=== PATIENT | female | born 1970 | race Two or more races ===

== ENCOUNTER 2020-02-23 17:45 | Inpatient (IN) | payer OTHER ==
[~2020-02-23] VITALS: Ht 154.9 cm; Wt 68.0 kg
[2020-02-23] MEDS ORDERED: LORA10TA7 PO (18:21)
[2020-02-23] MEDS ORDERED: TRAZ-252 PO (18:26)
[2020-02-23] MEDS ORDERED: LEVE500T53 PO (18:26)
[2020-02-23] MEDS ORDERED: SERT50TA12 PO (18:26)
[2020-02-23] MEDS ORDERED: PHEN12S PR (18:26)
[2020-02-23] MEDS ORDERED: ALBU8HFA IH (18:26)
[2020-02-23] MEDS ORDERED: PROM6.2521 PO ×2 (18:26→18:29)
[2020-02-23] MEDS ORDERED: IBUP-2070 PO (18:26)
[2020-02-23] MEDS ORDERED: ONDANSETRON HCL 4 MG/2 ML VIAL IVP ONE (18:30)
[2020-02-23] MEDS ORDERED: LORazepam 2 MG/ML VIAL IVP ONE (18:30)
[2020-02-23] MEDS ORDERED: AZITHROMYCIN 500 MG/NS 250 ML IV ONE (18:30)
[2020-02-23] MEDS ORDERED: LevETIRAcetam 1,000 MG in DEXTROSE 5%-WATER 100 ML IV ONE (18:30)
[2020-02-23] MEDS ORDERED: SODIUM CHLORIDE 0.9% 1,000 ML IV ONE (18:30)
[2020-02-23] MEDS ORDERED: ONDANSETRON HCL 4 MG/2 ML VIAL IVP PRN ×2 (19:15→20:30)
[2020-02-23] MEDS ORDERED: ACETAMINOPHEN 325 MG TABLET PO PRN (19:15)
[2020-02-23] MEDS ORDERED: ACETAMINOPHEN 500 MG TABLET PO ONE (19:15)
[2020-02-23] MEDS ORDERED: 0.9% SODIUM CHLORIDE 10 ML SYRINGE IVP PRN (19:15)
[2020-02-23 19:23] LABS: INFLUENZA TYPE A NEGATIVE FOR TYPE A (NEGATIVE); INFLUENZA TYPE B NEGATIVE FOR TYPE B (NEGATIVE)
[2020-02-23 19:27] LABS: BASOPHILS % (AUTO) 0.7 % (0.0-2.0); EOSINOPHILS % (AUTO) 0.4 % (1.0-6.0); HEMATOCRIT 45.6 % (36-46); HEMOGLOBIN 15.4 g/dL (12.0-16.0); LYMPHOCYTES % (AUTO) 30.2 % (22.0-44.0); MEAN CORPUSCULAR HEMOGLOBIN 28.6 pg (26.0-34.0); MEAN CORPUSCULAR HGB CONC 33.8 G/dL (31.0-37.0); MEAN CORPUSCULAR VOLUME 84 fL (80-100); MONOCYTES # (AUTO) 0.6 K/uL (0.1-1.0); MONOCYTES % (AUTO) 6.5 % (2.0-9.0); NEUTROPHILS # (AUTO) 6.2 K/uL (1.8-7.7); NEUTROPHILS % (AUTO) 62.2 % (40.0-70.0); PLATELET COUNT (AUTO) 322 K/uL (150-450); RED CELL DISTRIBUTION WIDTH 15.1 % (11.5-14.5)
[2020-02-23 19:40] LABS: ANION GAP 7 mmol/L (8-16); CALCIUM, TOTAL 10.1 mg/dL (8.8-10.5); CARBON DIOXIDE 28 mmol/L (22-29); CHLORIDE 104 mmol/L (98-107); CREATININE 0.87 mg/dL (0.60-1.30); GLOMERULAR FILTR. RATE CALC > 60 mL/min (>60); GLUCOSE,RANDOM 109 mg/dL (70-110); SODIUM SERUM 139 mmol/L (136-145); UREA NITROGEN, BLOOD 20 mg/dL (7-18)
[2020-02-23] MEDS ORDERED: LevETIRAcetam 500 MG in DEXTROSE 5%-WATER 100 ML IV ONE (20:00)
[2020-02-23 20:06] LABS: ALANINE AMINOTRANSFERASE 51 U/L (12-78); ALBUMIN 4.4 g/dL (3.4-5.0); ALKALINE PHOSPHATASE 108 U/L (46-116); ASPARTATE AMINOTRANSFERASE 29 U/L (15-37); BILIRUBIN,TOTAL 0.5 mg/dL (0.1-1.0); C-REACTIVE PROTEIN QUANT < 0.05 mg/dL (0.00-0.30); CREATINE KINASE, TOTAL ONLY 226 U/L (26-192); FERRITIN 63 ng/mL (8-252); FREE T4 (FREE THYROXINE) 1.26 ng/dL (0.76-1.46); LACTATE DEHYDROGENASE 160 U/L (81-234); LIPASE 171 U/L (73-393); TOTAL PROTEIN, SERUM 9.2 g/dL (6.4-8.2)
[2020-02-23 20:08] LABS: B-TYPE NATRIURETIC PEPTIDE 16 pg/mL (0-100)
[2020-02-23 20:22] LABS: LACTIC ACID 0.6 mmol/L (0.4-2.0)
[2020-02-23 21:30] VITALS: BP 133/104
[2020-02-23] MEDS: DOCUSATE SODIUM 100 MG CAPSULE PO SCH ×2 (21:50→22:00)
[2020-02-24 00:45] VITALS: BP 147/97
[2020-02-24] MEDS: ACETAMINOPHEN 325 MG TABLET PO PRN ×2 (02:28→20:37)
[2020-02-24 05:00] VITALS: BP 151/89
[2020-02-24 07:55] VITALS: BP 152/72
[2020-02-24 08:49] LABS: BASOPHILS % (AUTO) 0.8 % (0.0-2.0); EOSINOPHILS % (AUTO) 1.9 % (1.0-6.0); HEMOGLOBIN 14.7 g/dL (12.0-16.0); LYMPHOCYTES # (AUTO) 3.6 K/uL (1.0-4.8); LYMPHOCYTES % (AUTO) 40.8 % (22.0-44.0); MEAN CORPUSCULAR HEMOGLOBIN 28.6 pg (26.0-34.0); MEAN CORPUSCULAR HGB CONC 33.5 G/dL (31.0-37.0); MEAN CORPUSCULAR VOLUME 86 fL (80-100); MONOCYTES # (AUTO) 0.6 K/uL (0.1-1.0); MONOCYTES % (AUTO) 6.6 % (2.0-9.0); NEUTROPHILS # (AUTO) 4.4 K/uL (1.8-7.7); NEUTROPHILS % (AUTO) 49.9 % (40.0-70.0); PLATELET COUNT (AUTO) 275 K/uL (150-450); RED BLOOD CELL COUNT(AUTO) 5.14 MIL/uL (4.00-5.20)
[2020-02-24 09:52] LABS: ALANINE AMINOTRANSFERASE 49 U/L (12-78); ALBUMIN 3.8 g/dL (3.4-5.0); ALKALINE PHOSPHATASE 86 U/L (46-116); ANION GAP 9 mmol/L (8-16); ASPARTATE AMINOTRANSFERASE 36 U/L (15-37); BILIRUBIN,TOTAL 0.6 mg/dL (0.1-1.0); CALCIUM, TOTAL 9.5 mg/dL (8.8-10.5); CARBON DIOXIDE 24 mmol/L (22-29); CHLORIDE 106 mmol/L (98-107); CREATININE 0.76 mg/dL (0.60-1.30); FERRITIN 61 ng/mL (8-252); GLOMERULAR FILTR. RATE CALC > 60 mL/min (>60); GLUCOSE,RANDOM 96 mg/dL (70-110); POTASSIUM 4.1 mmol/L (3.5-5.1); SODIUM SERUM 139 mmol/L (136-145); TOTAL PROTEIN, SERUM 8.1 g/dL (6.4-8.2); UREA NITROGEN, BLOOD 13 mg/dL (7-18)
[2020-02-24 09:54] LABS: C-REACTIVE PROTEIN QUANT < 0.05 mg/dL (0.00-0.30)
[2020-02-24] MEDS ORDERED: LORazepam 2 MG/ML VIAL IVP PRN (10:30)
[2020-02-24] MEDS ORDERED: DOCUSATE SODIUM 100 MG CAPSULE PO PRN (10:30)
[2020-02-24] MEDS ORDERED: BISACODYL 10 MG RECTAL RECTAL SUPPOSITORY PR PRN (10:45)
[2020-02-24] MEDS ORDERED: LevETIRAcetam 500 MG in DEXTROSE 5%-WATER 100 ML IV SCH (11:00)
[2020-02-24] MEDS: PANTOPRAZOLE SODIUM 40 MG DR TABLET PO SCH (11:38)
[2020-02-24 12:00] VITALS: BP 121/87
[2020-02-24 16:15] VITALS: BP 141/108
[2020-02-24] MEDS: LORazepam 2 MG/ML VIAL IM PRN ×2 (16:32→23:10)
[2020-02-24] MEDS ORDERED: LORazepam 2 MG/ML VIAL IM ONE (16:45)
[2020-02-24 20:45] VITALS: BP 129/76
[2020-02-24] MEDS: LevETIRAcetam 500 MG TABLET PO SCH (23:10)
[2020-02-25 00:45] VITALS: BP 124/78
[2020-02-25 05:03] VITALS: BP 146/102
[2020-02-25 07:28] VITALS: BP 145/83
[2020-02-25] MEDS: LevETIRAcetam 500 MG TABLET PO SCH (08:27)
[2020-02-25] MEDS: PANTOPRAZOLE SODIUM 40 MG DR TABLET PO SCH (08:28)
[2020-02-25] MEDS ORDERED: MULTIVITAMINS WITH MINERALS, THERAPEUTIC TABLET PO SCH (09:00)
[2020-02-25] MEDS: LORazepam 2 MG/ML VIAL IM PRN (10:18)
[2020-02-25 10:38] VITALS: BP 136/91
[2020-02-25] MEDS ORDERED: SERTRALINE HCL 50 MG TABLET PO SCH (11:15)
[2020-02-25] MEDS ORDERED: SERT100T12 PO (13:08)
[2020-02-25] MEDS ORDERED: TRAZ-257 PO (13:10)
[2020-02-25] MEDS ORDERED: TraZODone HCL 100 MG TABLET PO SCH (21:00)
== END 2020-02-25 17:45 | DRG 101 ==
LOC: EMS 17:47 → 5N 20:30
PROVIDERS: ADMIT Internal Medicine; ATTEND Internal Medicine
DX: G40.909 Epilepsy, unspecified, not intractable, without status epilepticus (principal); M62.82 Rhabdomyolysis; E86.0 Dehydration; R79.89 Other specified abnormal findings of blood chemistry; Z20.828 Contact with and (suspected) exposure to other viral communicable diseases; F41.1 Generalized anxiety disorder; J45.909 Unspecified asthma, uncomplicated; Z79.899 Other long term (current) drug therapy
CPT/HCPCS: 70450; 71250; 72192; 74150; 82728; 83605; 83615; 83735; 84145; 84439; 85379; 86140; 87040; 87081; 87426; 87804; 93005; J0456; J0712; J2060; J2405; J7030; J7060